=== PATIENT | female | born 1970 | race Caucasian/White ===

== ENCOUNTER 2017-06-18 16:53 | Emergency (ER) | payer OTHER ==
[2017-06-18 17:22] VITALS: BP 140/82; PULSE 103; TEMP 98.9; BMI 36.0
--- NOTE | 2017-06-18 17:22 | PDOC ---
Rapid Medical Evaluation Medical Evaluation: Allergies Allergy/AdvReac Type Severity Reaction Status Date / Time ANESTHETICS AdvReac Intermediate Difficulty Uncoded 06/18/17 17:19 Breathing Vital Signs Temp Pulse Resp BP Pulse Ox 98.9 F 103 H 17 140/82 97 06/18/17 17:19 06/18/17 17:19 12 17:19 06/18/17 17:19 06/18/17 17:19 <Maycol,Kim - Last Filed: 06/18/17 19:08> Medical Evaluation: Allergies Allergy/AdvReac Type Severity Reaction Status Date / Time ANESTHETICS AdvReac Intermediate Difficulty Uncoded 06/24/16 12:33 Breathing 06/18/17 17:19 The patient presents with a chief complaint of: rt knee pain yesterday after climbing an object. No improvement today. pain with ambulation I have performed a brief in-person evaluation of this patient. Pertinent physical exam findings: tno tenderness, LROM with flexion I have ordered the following: none The patient will proceed to the ED for further evaluation. <Lyssa Condon - Last Filed: 06/19/17 07:47> Time Seen by Provider: 06/18/17 17:19 Discharge Disposition <Priti Severino - Last Filed: 06/18/17 19:08> <Lyssa Condon - Last Filed: 06/19/17 07:47> - Diagnosis Posterior right knee pain, Knee pain, right anterior - Discharge Dispostion Disposition: HOME Condition at time of disposition: Stable - Prescriptions Prescriptions: Ibuprofen 600 mg PO Q6H PRN #18 tablet PRN Reason: Pain - Referrals Referrals: Sourav Watkins MD [Staff Physician] - Francesca Garrett MD [Primary Care Provider] - - Patient Instructions Additional Instructions: Follow-up with Dr. Watkins on 06/20/17 wall for appointment number provided Elevate your right knee as much as possible and apply ice to swollen area every hour for at least 15 minutes each time while awake today and tomorrow Keep Andrez wrap wrap on right knee during the day take off at night you may purchase a small knee immobilizer at [facility] and wear during the day Return to emergency room if symptoms worsen or new symptoms develop Patient voiced understanding of discharge instructions and all questions were answered
[2017-06-18] MEDS ORDERED: IBUPROFEN 600 MG TABLET (FP) PO ONE (19:08)
--- NOTE | 2017-06-18 19:16 | PDOC ---
History of Present Illness - General Chief Complaint: Pain Stated Complaint: KNEE Time Seen by Provider: 06/18/17 17:19 History Source: Patient Exam Limitations: No Limitations - History of Present Illness Initial Comments: 06/18/17 23:19 My chief complaint: Right knee pain since yesterday History of present illness: Patient is a 47-year-old female with history of anemia, renal calculi here today complaining of sudden onset of right knee pain is yesterday when trying to climb onto a chair slightly twisting her right knee. Patient noticed swelling to her right suprapatellar and posterior right knee today. Patient reports that pain is worse when trying to bend her knee or when trying to walk. Patient did not take anything for pain yet. Patient denies any other symptoms. 06/18/17 23:21 Occurred: reports: yesterday Severity: Yes: moderate Lower Extremity Pain Location: right: knee (suprapatella, posterior patella ) Method of Injury: Yes: twisted (getting up on a chair) Lower Ext. Injury Location - Specific Injury Location Knees: right swelling (suprapatella), right pain (suprapatella, posterior ) Extremity Pain Location - Extremity Pain Location Extremity Pain Locations: right: knee (posterior, suprapatella ) Past History - Past Medical History Allergies/Adverse Reactions: Allergies Allergy/AdvReac Type Severity Reaction Status Date / Time ANESTHETICS AdvReac Intermediate Difficulty Uncoded 06/18/17 17:19 Breathing Home Medications: Ambulatory Orders Ferrous Sulfate [Feosol] 325 mg PO DAILY 06/18/17 Ibuprofen 600 mg PO Q6H PRN #18 tablet 06/18/17 Metoprolol Succinate [Toprol Xl] 100 mg PO DAILY 06/18/17 Anemia: Yes (IRON DEFICENCY) COPD: No Kidney Stones: Yes - Surgical History Abdominal Surgery: No GI Surgery: No (SX FOR KIDNEY STONES) - Suicide/Smoking/Psychosocial Hx Smoking History: Never smoked Hx Alcohol Use: No Drug/Substance Use Hx: No Substance Use Type: None Review of Systems - Review of Systems Able to Perform ROS?: Yes Constitutional: No: Symptoms Reported HEENTM: No: Symptoms Reported Respiratory: No: Symptoms reported Cardiac (ROS): No: Symptoms Reported ABD/GI: No: Symptoms Reported : No: Symptoms Reported Musculoskeletal: Yes: Joint Pain (rt. suprapatella, posterior rt. knee ), Joint Swelling (rt. suprapatella, posterior rt. knee ) Integumentary: No: Symptoms Reported Neurological: No: Symptoms reported *Physical Exam - Vital Signs Last Vital Signs Temp Pulse Resp BP Pulse Ox 98.9 F 103 H 17 140/82 97 06/18/17 17:19 06/18/17 17:19 06/18/17 17:19 06/18/17 17:19 06/18/17 17:19 - Physical Exam General Appearance: Yes: Appropriately Dressed Vascular Pulses: Dorsalis-Pedis (R): 4+ Extremity: positive: Normal Capillary Refill, Tender (right suprapatella, posterior rt. knee ), Swelling (rt. suprapatella, posterior rt. knee), Other ( negative anterior/posterior drawer). negative: Normal Inspection (rt. knee ), Normal Range of Motion (slightly decreased rt. with bending ) Integumentary: positive: Normal Color, Swelling (rt. suprapatella/posterior knee ) Procedures - Splinting Splint Location: Right: Knee Pre-Proc Neuro Vasc Exam: normal Andrez Bandage: 6" Complications: No Medical Decision Making - Medical Decision Making 06/18/17 23:21 Patient is a 47-year-old female with history of anemia, renal calculi here today complaining of sudden onset of right knee pain is yesterday when trying to climb onto a chair slightly twisting her right knee. Patient noticed swelling to her right suprapatellar and posterior right knee today. Patient reports that pain is worse when trying to bend her knee or when trying to walk. Patient did not take anything for pain yet. Patient denies any other symptoms. right knee pain PLAN; andrez wrap 6 inch rt. knee ibuprofen 600 mg po now than every 6 hrs prn pain follow up with orthopedist. *DC/Admit/Observation/Transfer Diagnosis at time of Disposition: Posterior right knee pain, Knee pain, right anterior - Discharge Dispostion Disposition: HOME Condition at time of disposition: Stable - Prescriptions Prescriptions: Ibuprofen 600 mg PO Q6H PRN #18 tablet PRN Reason: Pain - Referrals Referrals: Francesca Garrett MD [Primary Care Provider] - Sourav Watkins MD [Staff Physician] - - Patient Instructions Additional Instructions: Follow-up with Dr. Watkins on 06/20/17 wall for appointment number provided Elevate your right knee as much as possible and apply ice to swollen area every hour for at least 15 minutes each time while awake today and tomorrow Keep Andrez wrap wrap on right knee during the day take off at night you may purchase a small knee immobilizer at [facility] and wear during the day Return to emergency room if symptoms worsen or new symptoms develop Patient voiced understanding of discharge instructions and all questions were answered - Post Discharge Activity
== END 2017-06-18 19:20 | disposition home or self-care (01) ==
LOC: JERFT 16:53
DX: M25.561 Pain in right knee (principal); X50.1XXA Overexertion from prolonged static or awkward postures, initial encounter; Y93.39 Activity, other involving climbing, rappelling and jumping off; Y92.038 Other place in apartment as the place of occurrence of the external cause; D50.9 Iron deficiency anemia, unspecified; Z87.442 Personal history of urinary calculi
CPT/HCPCS: 99281-25

== ENCOUNTER 2019-08-14 06:02 | Day surgery (SDC) | payer OTHER ==
[2019-08-12 13:14] VITALS: BMI 39.4
[2019-08-14] MEDS ORDERED: DEXAMETHASONE SOD PHOSPHATE/PF 10 MG/ML SDV ONE (07:28)
[2019-08-14] MEDS ORDERED: MIDAZOLAM HCL 2 MG/2 ML SINGLE DOSE VIAL ONE ×5 (07:30→07:53)
[2019-08-14] MEDS ORDERED: PROPOFOL 20 ML ONE ×3 (07:59)
--- NOTE | 2019-08-14 08:02 | HP ---
Satellite [facility] - Chief Complaint Chief Complaint: right knee pain - Past Medical History Allergies/Adverse Reactions: Allergies Allergy/AdvReac Type Severity Reaction Status Date / Time No Known Drug Allergies Allergy Verified 08/14/19 07:00 ...LMP: 07/22/19 - Current Medications Current Medications: Home Medications Medication Instructions Recorded Ferrous Sulfate [Feosol] 325 mg PO DAILY 06/18/17 Cholecalciferol (Vitamin D3) 400 unit PO DAILY 08/12/19 [Vitamin D -] Metoprolol Succinate [Toprol Xl] 50 mg PO DAILY 08/12/19 Oxycodone HCl/Acetaminophen 1 - 2 tab PO Q6H #30 tab MDD 6 08/14/19 [Percocet 5-325 mg Tablet] Simvastatin 20 mg PO DAILY 08/14/19 Satellite Physical Exam - Physical Examination Vital Signs: Vital Signs Period Temp Pulse Resp BP Sys/Camp Pulse Ox Last 24 Hr 98.4 F 102 18 149/89 98 General Appearance: Well Nourished, Well Developed, Alert & Oriented x3 ENT: Clear Lung: Normal air movement Extremities: Other (right knee- + swelling, + ttp, decr rom, + ant draw, + reginaldo, + pivot, nvi, MRI + acl rupture, mt) Neurological: Intact, Alert, Oriented Satellite Impression/Plan - Impression/Plan Impression: right knee internal derangement Operative Procedure: right knee arthroscopy with ACL recon using graftlink allograft Date to be Performed: 08/14/19
[2019-08-14] MEDS ORDERED: ceFAZolin 2 GRAM PREMIX BAG IVPB ONE ×2 (08:20→10:00)
[2019-08-14] MEDS ORDERED: ceFAZolin SODIUM 1 GM VIAL ONE (09:14)
[2019-08-14] MEDS ORDERED: DEXAMETHASONE SOD PHOSPHATE 4 MG/1 ML VIAL ONE (09:14)
[2019-08-14] MEDS ORDERED: KETOROLAC TROMETHAMINE 30 MG/1 ML VIAL ONE (09:14)
[2019-08-14] MEDS ORDERED: ONDANSETRON 4 MG/2 ML VIAL IVPUSH PRN (10:13)
[2019-08-14] MEDS ORDERED: LACTATED RINGERS SOLUTION 1,000 ML IV SCH (10:15)
--- NOTE | 2019-08-14 10:15 | OP ---
Operative Note - Note: Operative Date: 08/14/19 ([facility]) Pre-Operative Diagnosis: right knee acl tear Operation: right knee arthroscopy with ACL reconstruction using graftlink allograft Post-Operative Diagnosis: Same as Pre-op Surgeon: Jaiden Contreras Manager Gas: Noé Gamez Anesthesia: General, Local Specimens Removed: shavings Estimated Blood Loss (mls): 10
[2019-08-14] MEDS ORDERED: oxyCODONE HCL 5 MG TABLET PO PRN (10:18)
[2019-08-14] MEDS ORDERED: ONDANSETRON 4 MG/2 ML VIAL IVPUSH ONE (10:35)
[2019-08-14 14:15] VITALS: TEMP 98
[2019-08-14] MEDS ORDERED: ONDANSETRON 4 MG/2 ML VIAL ONE (15:08)
--- NOTE | 2019-08-14 16:22 | OP ---
DATE OF OPERATION: 08/14/2019 PREOPERATIVE DIAGNOSIS: Right anterior cruciate ligament tear. POSTOPERATIVE DIAGNOSIS: Right anterior cruciate ligament tear, chondral lesion medial femoral condyle. SURGICAL PROCEDURE: Right anterior cruciate ligament reconstruction with "GraftLink" and chondroplasty medial femoral condyle. SURGICAL ATTENDING: Talya Contreras MD PHYSICIAN ASSISTANT PSYCHIATRY: TUCKER Rai ANESTHESIA: Regional and spinal. CLOSURE: A GraftLink for the ACL and 3-0 for skin. ESTIMATED BLOOD LOSS: Negligible. COMPLICATIONS: None. CONDITION: To recovery room in stable condition. DESCRIPTION OF PROCEDURE: The patient was taken to the operating room on August 14, 2019. Regional and spinal anesthesia were administered by the anesthesiologist. IV Kefzol was administered prophylactically prior to the case. The right lower extremity was prepped and draped in the usual sterile fashion. A GraftLink graft was prepared on the back table with the appropriate stitches and markings on the graft for later implantation inside the knee. The superomedial and medial and lateral infrapatellar portal sites were made with 15-blade followed by blunt trocar. The outflow trocar was placed superomedially. Scope trocar was placed inferolaterally and the working portal was inferomedially. Scope was placed in the lateral infrapatellar portal and up the suprapatellar pouch. Pouch was visualized to be clean. The medial and lateral gutters were visualized to be clean. The undersuface of the patella and trochlea were visualized to be intact. With valgus stress on the knee, the medial compartment was entered. The medial meniscus was visualized and probed and found to be intact. The medial femoral condyle had a small dime-sized lesion at about 30-40 degrees. This was drilled and micro picked to stimulate bleeding bone. At 90 degrees, the ACL was visualized and probed and found to be intact. In the figure-4 position, lateral compartment was entered. Lateral meniscus was visualized and probed and found to be intact. Lateral femoral condyle was run and found to be intact as was the lateral tibial plateau. Next, a notchplasty was performed using the bur and the ArthroCare device. This gained sufficient width and height of the notch to see all the way to the back of the knee and have room for the ACL graft. All bone and soft tissue was debrided using a shaver. The scope was switched to the inferomedial portal. The goad-hyz-faw guide was placed into the knee with the hook in the appropriate position of the posterior aspect of the notch on the lateral femoral condyle. It was clamped down onto the lateral femoral condyle after making a small stab incision laterally. The FlipCutter was then drilled into the knee into the appropriate aspect of the notch and then was flipped with 10-mm gutter and was retrograde drilled to the appropriate depth. All bone fragments in the knee were debrided using a shaver. A suture stick was then placed down from the lateral femoral condyle into the knee, and a grasper was placed into the knee and grasped with a suture and delivered out the inferolateral portal. The scope was then switched back to the inferolateral portal. The tibial guide was then used to drill the FlipCutter in the anteromedial proximal tibia into the knee just anterior to the PCL. It was then flipped to retrograde a 10-mm tunnel. Again, all bone fragments were debrided using a shaver. A suture stick was then placed up the medial tibial plateau into the knee and then was delivered out the inframedial portal. Both lassos from the tibial tunnel and the femoral tunnel were delivered into the knee and then were pulled out through the same pass in the inframedial portal. The GraftLink was then placed through the lasso first on the femoral side and shuttling the sutures into the knee, into the femoral tunnel, and out the skin incision lateral to the lateral femoral condyle. After the button was engaged in the femoral cortex, the knee was cycled to ensure that the button was flush on the bone. The toggle sutures were then used to pull the GraftLink up into the knee, into the femoral tunnel the appropriate depth. Next, the tibial lasso was used to deliver the fibular sutures into the tibial tunnel and down exiting the proximal medial tibial plateau region. A small incision was made in this region. The button was attached to the toggle sutures and the toggle sutures were then used to tension the graft pulling it into the tibial tunnel. Toggling it on the femoral side and the tibial side ensured appropriate tension of the ACL graft. Sutures were cut flush after being tied. All small stab incisions were then closed using 3-0 nylon suture. Direct visualization of the graft revealed external position of the graft. The knee was taken through a range of motion. Found to have good crossing of the PCL and no improvement on the notch throughout range of motion. Range of motion was found to go from full extension to full flexion with a negative anterior, posterior drawer, negative Deshaun. Sterile pressure dressing was applied followed by a knee immobilizer. Patient awakened from anesthesia. Transferred to recovery room in stable condition. No complications. TALYA CONTRERAS M.D. [id number]
[2019-08-14 16:47] VITALS: BP 125/74; PULSE 89
== END 2019-08-14 16:05 | disposition home or self-care (01) ==
LOC: JASU-SURG 06:02
PROVIDERS: ATTEND Orthopaedic Surgery
PROC: 0SBC4ZZ Excision of Right Knee Joint, Percutaneous Endoscopic Approach (ICD-10-PCS; 2019-08-14)
PROC: 0MRN4JZ Replacement of Right Knee Bursa and Ligament with Synthetic Substitute, Percutaneous Endoscopic Approach (ICD-10-PCS; principal; 2019-08-14 08:00)
DX: S83.511A Sprain of anterior cruciate ligament of right knee, initial encounter (principal); M24.10 Other articular cartilage disorders, unspecified site; X58.XXXA Exposure to other specified factors, initial encounter; Y93.9 Activity, unspecified; Y92.9 Unspecified place or not applicable; I10 Essential (primary) hypertension; E78.5 Hyperlipidemia, unspecified
CPT/HCPCS: 84703; 94760; 97116-GP

== ENCOUNTER 2020-12-04 23:12 | Emergency (ER) | payer OTHER ==
[2020-12-04 23:23] VITALS: BP 151/85; PULSE 100; TEMP 98.3; BMI 40.3
[2020-12-04] MEDS ORDERED: IBUPROFEN 600 MG TABLET (FP) PO ONE (23:58)
[2020-12-04] MEDS ORDERED: ACETAMINOPHEN 325 MG TABLET (FP) PO ONE (23:58)
[2020-12-05] MEDS ORDERED: ACETAMINOPHEN 325 MG TABLET (FP) ONE (00:22)
[2020-12-05] MEDS ORDERED: IBUPROFEN 600 MG TABLET (FP) PO ONE (00:22)
== END 2020-12-05 01:00 | disposition home or self-care (01) ==
LOC: JER 23:12
DX: M25.561 Pain in right knee (principal)
CPT/HCPCS: 73564-TC-RT-FY; 99283-25

== ENCOUNTER 2021-01-25 04:36 | Day surgery (SDC) | payer OTHER ==
[2021-01-23 11:19] VITALS: BMI 39.4
[2021-01-25] MEDS ORDERED: LIDOCAINE 1%/EPI 1:100000 (20 ML MULTI DOSE VIAL) ONE ×2 (07:13→07:36)
[2021-01-25] MEDS ORDERED: BUPIVACAINE HCL/PF 0.5% (5MG/ML) 10 ML VIAL ONE (07:13)
[2021-01-25] MEDS ORDERED: PROPOFOL 20 ML ONE ×2 (07:32)
[2021-01-25] MEDS ORDERED: MIDAZOLAM HCL 2 MG/2 ML SINGLE DOSE VIAL ONE (07:32)
[2021-01-25] MEDS ORDERED: ceFAZolin SODIUM 1 GM VIAL IVPB ONE (08:20)
[2021-01-25] MEDS ORDERED: KETOROLAC TROMETHAMINE 30 MG/1 ML VIAL ONE ×2 (08:22→09:35)
[2021-01-25] MEDS ORDERED: LIDOCAINE HCL 1%, 10 MG/ML (20ML VIAL) INF ONE (08:31)
[2021-01-25] MEDS ORDERED: BUPIVACAINE HCL/PF 0.5% (5 MG/ML) 30 ML VIAL IJ ONE (08:32)
[2021-01-25] MEDS ORDERED: oxyCODONE HCL 5 MG TABLET PO PRN (09:26)
[2021-01-25] MEDS ORDERED: ONDANSETRON 4 MG/2 ML VIAL IVPUSH PRN (09:26)
[2021-01-25] MEDS ORDERED: LACTATED RINGERS SOLUTION 1,000 ML IV SCH (09:30)
[2021-01-25] MEDS ORDERED: KETOROLAC TROMETHAMINE 30 MG/1 ML VIAL IVPUSH ONE (09:39)
[2021-01-25] MEDS ORDERED: ACETAMINOPHEN 325 MG TABLET (FP) ONE (10:42)
[2021-01-25] MEDS ORDERED: ONDANSETRON 4 MG/2 ML VIAL ONE (10:45)
[2021-01-25 12:41] VITALS: BP 133/79; PULSE 79; TEMP 98
== END 2021-01-25 11:20 | disposition home or self-care (01) ==
LOC: JASU-SURG 04:36
PROVIDERS: ATTEND Orthopaedic Surgery
PROC: 0SBC4ZZ Excision of Right Knee Joint, Percutaneous Endoscopic Approach (ICD-10-PCS; principal; 2021-01-25 08:00)
DX: S83.211A Bucket-handle tear of medial meniscus, current injury, right knee, initial encounter (principal); X58.XXXA Exposure to other specified factors, initial encounter; Y93.9 Activity, unspecified; Y92.9 Unspecified place or not applicable; Y99.9 Unspecified external cause status
CPT/HCPCS: 81025; 94760

== ENCOUNTER 2022-05-18 04:09 | Day surgery (SDC) | payer OTHER ==
[2022-05-15 13:05] VITALS: BMI 37.8
[~2022-05-18 04:09] MED LIST: BUPIVACAINE HCL/PF 0.5% (5MG/ML) 10 ML VIAL IJ ONE
[2022-05-18] MEDS ORDERED: BUPIVACAINE HCL/PF 0.5% (5MG/ML) 10 ML VIAL ONE (07:26)
[2022-05-18] MEDS ORDERED: PROPOFOL 20 ML ONE (07:54)
[2022-05-18] MEDS ORDERED: SUCCINYLCHOLINE CHLORIDE 200 MG/10 ML SYRINGE ONE (07:54)
[2022-05-18] MEDS ORDERED: ROCURONIUM BROMIDE 50 MG/5 ML SYRINGE ONE (07:55)
[2022-05-18] MEDS ORDERED: LACTATED RINGERS SOLUTION 1,000 ML IV SCH (08:30)
[2022-05-18] MEDS ORDERED: SCOPOLAMINE HYDROBROMIDE 1 PATCH PATCH.TD72 TD ONE ×2 (08:37→08:45)
[2022-05-18] MEDS ORDERED: SCOPOLAMINE HYDROBROMIDE 1 PATCH PATCH.TD72 ONE (08:39)
[2022-05-18] MEDS ORDERED: MIDAZOLAM HCL 2 MG/2 ML SINGLE DOSE VIAL ONE (08:47)
[2022-05-18] MEDS ORDERED: ceFAZolin SODIUM 1 GM VIAL IVPB ONE ×2 (09:03→09:05)
[2022-05-18] MEDS ORDERED: ceFAZolin SODIUM 1 GM VIAL ONE (09:06)
[2022-05-18] MEDS ORDERED: BUPIVACAINE HCL/PF 0.5% (5MG/ML) 10 ML VIAL IJ ONE ×2 (09:18)
[2022-05-18] MEDS ORDERED: ePHEDrine SULFATE 50 MG/1 ML AMPULE ONE (09:27)
[2022-05-18] MEDS ORDERED: GLYCOPYRROLATE 0.2 MG/1 ML VIAL ONE ×2 (09:27→09:47)
[2022-05-18] MEDS ORDERED: NEOSTIGMINE METHYLSULFATE 0.5 MG/1 ML - 10 ML MDV ONE (09:47)
[2022-05-18] MEDS ORDERED: ACETAMINOPHEN 1000 MG/100 ML BAG IVPB ONE (10:40)
[2022-05-18] MEDS ORDERED: ACETAMINOPHEN INJECTION 100 ML IVPB ONE (10:48)
[2022-05-18] MEDS ORDERED: PROMETHAZINE HCL 25 MG/1 ML VIAL ONE (13:37)
[2022-05-18] MEDS ORDERED: ONDANSETRON 4 MG/2 ML VIAL ONE (13:40)
[2022-05-18 17:53] VITALS: BP 118/64; PULSE 90; RESP 18; TEMP 97
== END 2022-05-18 17:15 | disposition home or self-care (01) ==
LOC: JASU-SURG 04:09
PROVIDERS: ATTEND Surgery
PROC: 0FT44ZZ Resection of Gallbladder, Percutaneous Endoscopic Approach (ICD-10-PCS; principal; 2022-05-18 08:30)
DX: K80.10 Calculus of gallbladder with chronic cholecystitis without obstruction (principal)
CPT/HCPCS: 88304-TC; 94760

== ENCOUNTER 2022-08-08 08:07 | Emergency (ER) | payer OTHER ==
[2022-08-08 08:19] VITALS: BP 152/95; PULSE 85; RESP 18; TEMP 97.5; BMI 39.4
[2022-08-08] MEDS ORDERED: ACETAMINOPHEN 500 MG TABLET (FP) PO ONE (08:44)
[2022-08-08] MEDS ORDERED: METHOCARBAMOL 500 MG TABLET PO ONE (08:44)
[2022-08-08] MEDS ORDERED: METHOCARBAMOL 500 MG TABLET ONE (08:53)
[2022-08-08] MEDS ORDERED: ACETAMINOPHEN 500 MG TABLET (FP) ONE (08:55)
[2022-08-08] MEDS ORDERED: KETOROLAC TROMETHAMINE 30 MG/1 ML VIAL IM ONE (10:35)
[2022-08-08] MEDS ORDERED: KETOROLAC TROMETHAMINE 30 MG/1 ML VIAL ONE (10:42)
== END 2022-08-08 11:29 | disposition home or self-care (01) ==
LOC: JER 08:07
PROC: 3E0233Z Introduction of Anti-inflammatory into Muscle, Percutaneous Approach (ICD-10-PCS; principal; 2022-08-08)
DX: S09.90XA Unspecified injury of head, initial encounter (principal); M54.2 Cervicalgia; W00.0XXA Fall on same level due to ice and snow, initial encounter
CPT/HCPCS: 70450-TC; 72125-TC; 99284-25

== ENCOUNTER 2024-05-01 09:40 | Day surgery (SDC) | payer BC ==
[2024-04-28 16:34] VITALS: BMI 42.9
[2024-05-01 10:06] VITALS: RESP 16; TEMP 97.5
[2024-05-01 13:42] VITALS: BP 125/62; PULSE 78
== END 2024-05-01 12:10 | disposition home or self-care (01) ==
LOC: FASU-ENDO 09:40
PROVIDERS: ATTEND Internal Medicine Gastroenterology
PROC: 0DJD8ZZ Inspection of Lower Intestinal Tract, Via Natural or Artificial Opening Endoscopic (ICD-10-PCS; principal; 2024-05-01 10:58)
DX: Z12.11 Encounter for screening for malignant neoplasm of colon (principal); K64.0 First degree hemorrhoids; K64.8 Other hemorrhoids